=== PATIENT | female | born 1945 | race Hispanic/Latino ===

== ENCOUNTER 2017-05-31 14:27 | Emergency (ER) | payer MEDICARE, OTHER ==
[2017-05-31 14:29] VITALS: BMI 27.0
[2017-05-31 14:53] VITALS: BP 115/70; PULSE 84; RESP 20; TEMP 98.2; O2SAT 96
[2017-05-31 16:00] LABS: BASO # 0.1 K/uL (0.0-0.2); BASO % 1.3 % (0.0-2.0); EOS # 0.2 K/uL (0.0-0.7); EOS % 3.4 % (0.0-4.0); HEMATOCRIT 43.7 % (34.0-47.0); LYMPH # 1.9 K/uL (1.0-4.3); LYMPH % 29.9 % (20.0-40.0); MEAN CELL VOLUME 86.7 fl (81.0-99.0); MEAN CORPUSCULAR HEMOGLOBIN 28.6 pg (27.0-31.0); MEAN PLATELET VOLUME 7.3 fl (7.2-11.7); MONO # 0.5 K/uL (0.0-0.8); MONO % 8.2 % (0.0-10.0); NEUT # 3.7 K/uL (1.8-7.0); NEUT % 57.2 % (50.0-75.0); RED CELL DISTRIBUTION WIDTH 13.6 % (11.5-14.5); WHITE BLOOD COUNT 6.4 K/uL (4.8-10.8)
--- NOTE | 2017-05-31 16:02 | ED PDOC ---
Upper Extremity Pain/Injury Chief Complaint (Nursing): Upper Extremity Problem/Injury Chief Complaint (Provider): Bruising on bilateral arms History Per: Patient History/Exam Limitations: no limitations Onset/Duration Of Symptoms: Days (x2 ) Current Symptoms Are (Timing): Still Present Additional Complaint(s): Elisa Crump, a 71 year old female presents to the ED with bruising on arms bilaterally x2 days. The patient denies history of trauma, easy bruisability or excessive bleeding when brushing teeth or when cut. She reports that she uses aspirin daily because she hear it was good for old people. PMD: Dr. Jewell Past Medical History Reviewed: Historical Data, Nursing Documentation, Vital Signs Vital Signs: Last Vital Signs Temp 98.2 F 05/31/17 14:46 Pulse 84 05/31/17 14:46 Resp 20 05/31/17 14:46 BP 115/70 05/31/17 14:46 Pulse Ox 96 05/31/17 14:46 - Medical History PMH: Hypercholesterolemia Denies: Arthritis, Asthma, Atrial Fibrillation, CHF, COPD, Diabetes, HTN, Seizures - Surgical History Surgical History: Denies: CABG, Pacemaker - Family History Family History: Denies: CAD - Home Medications Home Medications: Ambulatory Orders Medication Instructions Recorded Atorvastatin Calcium [Atorvastatin 02/06/17 Calcium] Calcium Carbonate [Calcium] 500 mg PO 02/06/17 Meclizine HCl 25 mg PO 02/06/17 - Allergies Allergies/Adverse Reactions: Allergies Allergy/AdvReac Type Severity Reaction Status Date / Time No Known Allergies Allergy Unverified 02/06/17 11:22 Review of Systems ROS Statement: Except As Marked, All Systems Reviewed And Found Negative Musculoskeletal: Negative for: Arm Pain (bruising to bilateral arms) Physical Exam - Reviewed Nursing Documentation Reviewed: Yes Vital Signs Reviewed: Yes - Physical Exam Appears: Positive for: Non-toxic, No Acute Distress Skin: Positive for: Warm, Dry. Negative for: Normal Color (ecchymosis to b/l bicep; no petechiae or other bruising noted.), Rash Eye Exam: Positive for: Normal appearance, EOMI, PERRL ENT: Positive for: Normal ENT Inspection. Negative for: Nasal Congestion, Tonsillar Exudate, Tonsillar Swelling Neck: Positive for: Normal, Painless ROM, Supple Cardiovascular/Chest: Positive for: Regular Rate, Rhythm, Chest Non Tender. Negative for: Tachycardia Respiratory: Positive for: Normal Breath Sounds. Negative for: Rales, Rhonchi, Wheezing, Respiratory Distress Gastrointestinal/Abdominal: Positive for: Normal Exam, Bowel Sounds, Soft. Negative for: Tenderness, Guarding, Rebound Back: Positive for: Normal Inspection. Negative for: L CVA Tenderness, R CVA Tenderness Extremity: Positive for: Normal ROM. Negative for: Tenderness, Deformity, Swelling Lymphatic: Positive for: Normal Exam. 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 Negative for: Motor /Sensory Deficits, Aphasia - Laboratory Results Result Diagrams: 05/31/17 15:53 - ECG O2 Sat by Pulse Oximetry: 96 (RA) Pulse Ox Interpretation: Normal Medical Decision Making Medical Decision Making: Initial Impression 71 y/o female presenting with bruising on arms bilaterally Initial Plan: * CBC * PT/INR * Reevaluation Scribe Attestation: Documented by Mita Bernal, acting as a scribe for River Montoya MD. Provider Scribe Attestation: All medical record entries made by the Scribe were at my direction and personally dictated by me. I have reviewed the chart and agree that the record accurately reflects my personal performance of the history, physical exam, medical decision making, and the department course for this patient. I have also personally directed, reviewed, and agree with the discharge instructions and disposition. Disposition - Clinical Impression Clinical Impression: Bruising - Patient ED Disposition Is Patient to be Admitted: No Counseled Patient/Family Regarding: Studies Performed, Diagnosis, Need For Followup - Disposition Referrals: [facility] [Outside] Disposition: Routine/Home Disposition Time: 16:52 Condition: FAIR Instructions: Aspirin (By mouth) Forms: [employer] (French)
== END 2017-05-31 17:10 | disposition home or self-care (01) ==
LOC: H.ER 14:27
DX: M79.81 Nontraumatic hematoma of soft tissue (principal); E78.00 Pure hypercholesterolemia, unspecified

== ENCOUNTER 2017-10-28 17:00 | Emergency (ER) | payer MEDICARE, OTHER ==
[2017-10-28 17:00] VITALS: BMI 27.0
[2017-10-28 18:28] LABS: BASO # 0.1 K/uL (0.0-0.2); EOS # 0.2 K/uL (0.0-0.7); HEMOGLOBIN 13.8 g/dL (12.0-16.0); LYMPH % 36.2 % (20.0-40.0); MEAN CELL VOLUME 86.8 fl (81.0-99.0); MEAN CORPUSCULAR HEMOGLOBIN 29.1 pg (27.0-31.0); MEAN CORPUSCULAR HGB CONC 33.5 g/dL (33.0-37.0); MEAN PLATELET VOLUME 7.6 fl (7.2-11.7); MONO # 0.4 K/uL (0.0-0.8); MONO % 8.3 % (0.0-10.0); NEUT # 2.7 K/uL (1.8-7.0); NEUT % 50.5 % (50.0-75.0); NRBC % 0.1 % (0.0-0.0); RBC 4.73 Mil/uL (3.80-5.20); RED CELL DISTRIBUTION WIDTH 14.2 % (11.5-14.5); WHITE BLOOD COUNT 5.4 K/uL (4.8-10.8)
--- NOTE | 2017-10-28 18:29 | ED PDOC ---
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 Patient states the pain has slightly increased in intensity since onset. She denies any associated nausea, vomiting, weakness, numbness, vision changes, photophobia, difficulty speaking. She also denies any trauma or injuries. Patient states she presents for evaluation because she is concerned about "cancer". Patient also has a secondary complaint of bilateral hip pain, and is unsure of its onset; states she has no difficulty ambulating. Patient denies any fever, chills, night sweats or weight loss as well. She has no other medical complaints. PMD: [facility] Past Medical History Reviewed: Historical Data, Nursing Documentation, Vital Signs Vital Signs: Last Vital Signs Temp 97.2 F L 10/28/17 17:04 Pulse 78 10/28/17 17:04 Resp 20 10/28/17 17:04 BP 147/90 10/28/17 17:04 Pulse Ox 98 10/28/17 17:04 - Medical History PMH: Hypercholesterolemia Denies: Arthritis, Asthma, Atrial Fibrillation, CHF, COPD, Diabetes, HTN, Seizures - Surgical History Surgical History: Denies: CABG, Pacemaker - Family History Family History: Denies: CAD - Home Medications Home Medications: Ambulatory Orders Medication Instructions Recorded Atorvastatin Calcium [Atorvastatin 02/06/17 Calcium] Calcium Carbonate [Calcium] 500 mg PO 02/06/17 Meclizine HCl 25 mg PO 02/06/17 Acetaminophen [Tylenol Extra 1,000 mg PO Q6 PRN #100 tablet 10/28/17 Strength] - Allergies Allergies/Adverse Reactions: Allergies Allergy/AdvReac Type Severity Reaction Status Date / Time No Known Allergies Allergy Verified 10/28/17 17:03 Review of Systems ROS Statement: Except As Marked, All Systems Reviewed And Found Negative (per HPI) Constitutional: Negative for: Fever, Chills, Sweats, Malaise, Weight loss Musculoskeletal: Positive for: Other (hip pain) Neurological: Positive for: Headache. Negative for: Weakness, Numbness Physical Exam - Reviewed Nursing Documentation Reviewed: Yes Vital Signs Reviewed: Yes - Physical Exam Appears: Positive for: Well, No Acute Distress Head Exam: Positive for: ATRAUMATIC, NORMOCEPHALIC Skin: Positive for: Warm, Dry Eye Exam: Positive for: EOMI, PERRL ENT: Positive for: Pharynx Is (clear) Neck: Positive for: Painless ROM, Supple Cardiovascular/Chest: Positive for: Regular Rate, Rhythm. Negative for: Murmur Respiratory: Positive for: Normal Breath Sounds. Negative for: Wheezing Gastrointestinal/Abdominal: Positive for: Soft. Negative for: Tenderness, Mass , Distended, Guarding, Rebound Back: Positive for: Normal Inspection. Negative for: Decreased ROM Extremity: Positive for: Normal ROM, Other (FROM bilateral leg/hip 5/5 strength) . 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 Negative for: Motor/Sensory Deficits - Laboratory Results Result Diagrams: 10/28/17 18:10 10/28/17 18:10 - ECG O2 Sat by Pulse Oximetry: 98 (RA) Pulse Ox Interpretation: Normal Medical Decision Making Medical Decision Making: Impression: Headache Differential (including but not limited to): Intracerebral mass, migraine, tension headache, electrolyte abnormalities, anemia Plan: -- Labs -- CT Head w/o contrast -- XR Hips time: 1899 CT Head CALVARIUM: There are no acute calvarial fractures. PARANASAL SINUSES: Unremarkable as visualized. No significant inflammatory changes. MASTOID AIR CELLS: Unremarkable as visualized. No inflammatory changes. OTHER FINDINGS: None. IMPRESSION: No acute intracranial hemorrhage. Moderate chronic white matter and basal nuclei ischemic changes. Note that the possibility of a small hyperacute infarct cannot be excluded on this study therefore clinical correlation recommended. Moderate volume loss. Time: 1955 XR Hips as read by provider indicates no fractures or dislocations. Patient informed of CT and XR findings, and is stable for discharge home. Patient given instructions for follow up with [facility]. Scribe Attestation: Documented by Abigail Harrison acting as a scribe for Jesenia Mcgowan MD. Provider Attestation: All medical record entries made by the Scribe were at my direction and personally dictated by me. I have reviewed the chart and agree that the record accurately reflects my personal performance of the history, physical exam, medical decision making, and the department course for this patient. I have also personally directed, reviewed, and agree with the discharge instructions and disposition. Disposition - Clinical Impression Clinical Impression: Headache, Hip pain - Disposition Referrals: [facility] [Outside] - 10/29/17 Disposition: Routine/Home Disposition Time: 19:17 Condition: GOOD Prescriptions: Acetaminophen [Tylenol Extra Strength] 1,000 mg PO Q6 PRN #100 tablet PRN Reason: FEVER OR PAIN Instructions: Headache, Adult, Hip Pain in Older People Forms: [facility] (K[place]i)
[2017-10-28 18:32] LABS: ALB/GLOB RATIO 1.1 (1.0-2.1); ALBUMIN 3.9 g/dL (3.5-5.0); ALT/SGPT 27 U/L (9-52); AST/SGOT 27 U/L (14-36); BLOOD UREA NITROGEN 21 mg/dl (7-17); CALCIUM 9.1 mg/dL (8.4-10.2); GFR AFRICAN-AMERICAN > 60; GFR NON-AFRICAN AMERICAN > 60
[2017-10-28 18:35] LABS: PARTIAL THROMBOPLASTIN TIME 40.9 Seconds (25.6-37.1); PROTHROMBIN TIME 10.6 Seconds (9.8-13.1)
--- NOTE | 2017-10-28 18:51 | CT ---
PROCEDURE: CT scan brain dated 10/28/2017. HISTORY: Headache and weakness. COMPARISON: None available. TECHNIQUE: Axial computed tomography images were obtained through the head/brain without intravenous contrast. Radiation dose: Total exam DLP = 758.23 mGy-cm. This CT exam was performed using one or more of the following dose reduction techniques: Automated exposure control, adjustment of the mA and/or kV according to patient size, and/or use of iterative reconstruction technique. FINDINGS: HEMORRHAGE: No acute parenchymal, subarachnoid or extra-axial hemorrhage. BRAIN: Moderate diffuse/ confluent chronic periventricular white matter ischemic changes seen extending peripherally into the deep and subcortical white matter both cerebral hemispheres. There is also some extension these changes into the white matter tracts of both basal nuclei. Multiple more discrete deep and subcortical white matter as well as bilateral basal nuclei chronic ischemic changes also felt be present. Note that the possibility of a small hyperacute infarct cannot be excluded on this study and therefore clinical correlation recommended. Moderate generalized volume loss. Vascular calcifications again noted VENTRICLES: No obstructive hydrocephalus. CALVARIUM: There are no acute calvarial fractures. PARANASAL SINUSES: Unremarkable as visualized. No significant inflammatory changes. MASTOID AIR CELLS: Unremarkable as visualized. No inflammatory changes. OTHER FINDINGS: None. IMPRESSION: No acute intracranial hemorrhage. Moderate chronic white matter and basal nuclei ischemic changes. Note that the possibility of a small hyperacute infarct cannot be excluded on this study therefore clinical correlation recommended. Moderate volume loss.
[2017-10-28 20:37] VITALS: BP 132/82; PULSE 80; RESP 18; TEMP 97.5
[2017-10-28 21:48] VITALS: O2SAT 98
--- NOTE | 2017-10-29 13:25 | RAD ---
PROCEDURE: HISTORY: Bilateral hip Pain. No history of recent/ related trauma provided COMPARISON: None TECHNIQUE: Standard protocol for this study/examination. FINDINGS: There are no osseous abnormalities to suggest fracture. The pelvic ring is intact. Preserved femoral-acetabular relationship. Negative study for protrusio, subluxation or dislocation. Degenerative changes: Mild and symmetrical. Evidence of osteitis pubis common normal variant. Incidental finding(s): Constipation. IMPRESSION: No acute findings related to/accounting for the clinical presentation.
== END 2017-10-28 20:30 | disposition home or self-care (01) ==
LOC: H.ER 17:00
DX: R51 Headache (principal); M25.551 Pain in right hip; M25.552 Pain in left hip; E78.00 Pure hypercholesterolemia, unspecified